=== PATIENT | female | born 1950 | race Asian ===

== ENCOUNTER 2019-12-23 13:33 | Outpatient (CLI) | payer MEDICARE, OTHER | END 2019-12-23 13:34 | disposition home or self-care (01) | LOC: LAB 13:33 | PROVIDERS: ATTEND Ophthalmology | DX: Z01.812 Encounter for preprocedural laboratory examination (principal); Z20.828 Contact with and (suspected) exposure to other viral communicable diseases; H25.812 Combined forms of age-related cataract, left eye ==

== ENCOUNTER 2019-12-26 06:51 | Day surgery (SDC) | payer MEDICARE, OTHER ==
[~2019-12-26 06:51] MED LIST: KETOROLAC 0.45% OPHTH DROPS ONE; PHENYLEPHRINE 2.5% OPHTH 2 ML DROPS ONE; PROPARACAINE 0.5% OPHTH DROPS 15 ML ONE
[2019-12-26] MEDS ORDERED: LACTATED RINGERS 500 ML IV ONE (06:55)
[2019-12-26] MEDS ORDERED: CYCLOPENTOLATE 1% OPHTH DROPS 2 ML LEFTEYE ONE (07:10)
--- NOTE | 2019-12-26 07:30 | ANESTHESIA ---
Pre-Anesthesia VS, & Labs - Diagnosis left eye cataract - Procedure CATIOL Vital Signs: Temp Pulse Resp BP Pulse Ox 36.1 C L 77 17 176/101 H 100 12/26/19 07:08 12/26/19 07:08 12/26/19 07:08 12/26/19 07:08 12/26/19 07:08 Height: 5 ft 3 in Weight (kg): 47 kg Body Mass Index: 18.3 BMI Classification: Underweight - NPO >8 hours - Is Patient ?: No - Lab Results Current Lab Results: Laboratory Tests 12/26/19 07:19: POC Whole Bld Glucose 364 H Lab results reviewed: Yes Home Medications and Allergies Home Medications: Ambulatory Orders No Known Home Medications 12/26/19 No Known Home Medications 12/26/19 Allergies/Adverse Reactions: Allergies Allergy/AdvReac Type Severity Reaction Status Date / Time ibuprofen Allergy Hives Verified 12/26/19 07:26 Penicillins Allergy Hives Verified 01/20/16 06:12 sulfamethoxazole Allergy Hives Verified 01/20/16 06:12 [From ] trimethoprim [From ] Allergy Hives Verified 01/20/16 06:12 iodine AdvReac Unknown Verified 01/20/16 06:12 Anes History & Medical History - Anesthetic History Anesthesia Complications: reports: No previous complications Family history of Anesthesia Complications: Denies Family history of Malignant Hyperthermia: Denies - Medical History Cardiovascular: reports: Hypertension Pulmonary: reports: None Gastrointestinal: reports: None Urinary: reports: None Musculoskeletal: reports: None Endocrine/Autoimmune: reports: Type 2 diabetes Skin: reports: None Smoking Status: Never smoker Psychosocial: reports: Other (patient has stopped taking all medications, blood glucose 367 this morning, Dr. Pan notified) - Surgical History General: Appendectomy Orthopedic: Other Exam General: Alert, Oriented x3, Cooperative, No acute distress Mouth Openin Fingerbreadth Neck Mobility: Normal Mallampati classification: II Respiratory: Lungs clear, Normal breath sounds, No respiratory distress, No accessory muscle use Cardiovascular: Regular rate, Normal S1, Normal S2, No murmurs Plan Anesthesia Type: MAC Consent for Procedure(s) Verified and Reviewed: Yes Code Status: Attempt Resuscitation ASA classification: 3-Severe systemic disease Is this case an emergency?: No
[2019-12-26] MEDS ORDERED: EPINEPHrine 1 MG/ML AMP IR ONE (08:10)
[2019-12-26] MEDS ORDERED: PROPARACAINE 0.5% OPHTH DROPS 15 ML EACHEYE ONE (08:10)
[2019-12-26] MEDS ORDERED: BRIMONIDINE 0.2% OPHTH DROPS 5 ML OPTH ONE (08:10)
[2019-12-26] MEDS ORDERED: CHONDR SULF/HYALURONATE SYRINGE IO ONE (08:10)
[2019-12-26] MEDS ORDERED: BSS/LIDOCAINE/EPINEPHRINE 1 ML SYRINGE IO ONE (08:12)
[2019-12-26] MEDS ORDERED: TRIAMCIN/MOXIFLOX OPHTHALMIC 0.6 ML VIAL IO ONE ×2 (08:12→08:13)
[2019-12-26] MEDS ORDERED: VANCOMYCIN OPHTHALMI 8MG/0.8ML 8 MG/0.8 ML SYRINGE IO ONE ×2 (08:14→12:39)
[2019-12-26] MEDS ORDERED: LACTATED RINGERS 1,000 ML IV ONE (08:29)
--- NOTE | 2019-12-26 08:40 | ANESTHESIA POST OP EVALUATION ---
Anesthesia Post Eval - Post Anesthesia Eval Vitals: Last Vital Signs Temp 36.5 C 12/26/19 08:33 Pulse 70 12/26/19 08:33 Resp 12 12/26/19 08:33 BP 154/66 H 12/26/19 08:33 Pulse Ox 100 12/26/19 08:33 CV Function Including HR & BP: positive: Stable Pain Control: positive: Satisfactory Nausea & Vomiting: positive: Negative Mental Status: positive: Baseline Respiratory Status: Airway Patent Hydration Status: Satisfactory Anesthesia Complications: positive: None
[2019-12-26 08:53] VITALS: BP 150/68
[2019-12-26] MEDS ORDERED: BSS/LIDOCAINE/EPINEPHRINE 1 ML SYRINGE ONE (12:39)
[2019-12-26] MEDS ORDERED: TIMOLOL 0.5% OPHTH DROPS ONE (12:40)
[2019-12-26] MEDS ORDERED: BRIMONIDINE 0.2% OPHTH DROPS 5 ML ONE (12:40)
--- NOTE | 2019-12-26 19:27 | PROCEDURE REPORT ---
DATE OF SERVICE: 12/26/2019 Physician: El Pan MD DATE OF PROCEDURE: 12/26/2019. PREOPERATIVE DIAGNOSIS: Visually significant cataract of left eye; this was her first cataract surgery. POSTOPERATIVE DIAGNOSIS: Visually significant cataract of left eye; this was her first cataract surgery. PROCEDURE PERFORMED: Phacoemulsification with posterior chamber intraocular lens implant, left eye. SURGEON: El Pan MD ANESTHESIA: Monitored anesthesia care. COMPLICATIONS: None. OPERATIVE INDICATIONS: This is a 69-year-old woman with progressive loss of vision in the left eye due to 2-3+ nuclear sclerotic and 3+ posterior subcapsular cataract. Best corrected visual acuity was 20/500, with glare to light perception vision in the left eye. Indications for surgery are overall decrease in vision, difficulty seeing words on a computer screen, difficulty reading, difficulty seeing words, closed captions, or game scores on TV, difficulty seeing street signs, difficulty driving in low light or at night, difficulty driving at night because of headlights from other vehicles, difficulty with glare or bright lights in any situation, and difficulty tracking a golf ball. She was consented at length concerning risks and benefits of cataract surgery, after which she expressed a desire to proceed with surgery. OPERATIVE PROCEDURE: Patient was taken to OR #3 and placed under monitored anesthesia care. A surgical timeout was conducted confirming correct patient, correct procedure, and correct surgical site. She was given topical anesthesia, and prepped and draped in the usual sterile manner. The eye was entered at the 6 and 3 o'clock positions. Intracameral Shugarcaine was injected into the anterior chamber, followed by Viscoat. A continuous-tear curvilinear capsulorrhexis was performed. The nucleus was hydrodissected and phacoemulsified. The cortex was evacuated using automated infusion and aspiration. Provisc was injected in the capsular bag, and a 23.0 diopter intraocular lens was inserted into the bag. Infusion and aspiration was used to evacuate the viscoelastic materials. The eye was inflated to physiologic pressure using balanced salt solution and found to be watertight. Approximately 0.25 mL of a mixture of triamcinolone and moxifloxacin was injected transsclerally into the vitreous in the inferotemporal quadrant. An additional 0.55 mL of a mixture of triamcinolone, moxifloxacin and vancomycin was injected subconjunctivally in the superior quadrant for infection and inflammation prophylaxis. Wound integrity was checked with Weck-Edda sponges. Patient was taken from the Operating Room in good condition and given postoperative instructions. TD: 12/26/2019 08:38 ERIN
== END 2019-12-26 06:52 | disposition home or self-care (01) ==
LOC: SDS 06:51
PROVIDERS: ATTEND Ophthalmology
DX: E11.36 Type 2 diabetes mellitus with diabetic cataract (principal); H25.812 Combined forms of age-related cataract, left eye; I10 Essential (primary) hypertension
CPT/HCPCS: 66984; A9270; J3490; J7120; V2632

== ENCOUNTER 2020-01-20 15:48 | Outpatient (CLI) | payer MEDICARE, OTHER | END 2020-01-20 15:49 | disposition home or self-care (01) | LOC: LAB 15:48 | PROVIDERS: ATTEND Ophthalmology | DX: Z01.812 Encounter for preprocedural laboratory examination (principal); H25.811 Combined forms of age-related cataract, right eye; Z20.828 Contact with and (suspected) exposure to other viral communicable diseases ==

== ENCOUNTER 2020-01-23 06:56 | Day surgery (SDC) | payer MEDICARE, OTHER ==
[2020-01-23] MEDS ORDERED: LACTATED RINGERS 500 ML IV ONE ×2 (07:05→08:23)
--- NOTE | 2020-01-23 07:37 | ANESTHESIA ---
Pre-Anesthesia VS, & Labs - Diagnosis right eye senile combined cataract - Procedure right eye cataract extraction with IOL implant Vital Signs: Temp Pulse Resp BP Pulse Ox 36.0 C L 78 16 155/86 H 100 01/23/20 07:05 01/23/20 07:05 01/23/20 07:05 01/23/20 07:05 01/23/20 07:05 Height: 5 ft 3 in Weight (kg): 46.2 kg Body Mass Index: 18.0 BMI Classification: Underweight - NPO >8 hours - Is Patient ?: No - Lab Results Current Lab Results: Laboratory Tests 01/23/20 07:19: POC Whole Bld Glucose 390 H Home Medications and Allergies No Known Home Medications 12/26/19 Allergies/Adverse Reactions: Allergies Allergy/AdvReac Type Severity Reaction Status Date / Time ibuprofen Allergy Hives Verified 12/26/19 07:26 Penicillins Allergy Hives Verified 01/20/16 06:12 sulfamethoxazole Allergy Hives Verified 01/20/16 06:12 [From Novra] trimethoprim [From ] Allergy Hives Verified 01/20/16 06:12 iodine AdvReac Unknown Verified 01/20/16 06:12 Anes History & Medical History - Anesthetic History Anesthesia Complications: reports: No previous complications - Medical History Cardiovascular: reports: None Pulmonary: reports: None Gastrointestinal: reports: None Urinary: reports: None Neuro: reports: None Musculoskeletal: reports: None Endocrine/Autoimmune: reports: Type 2 diabetes (refuses treatment for DM) Skin: reports: None Smoking Status: Never smoker Psychosocial: reports: No issues indicated History of Cancer?: No - Surgical History General: Appendectomy Eyes Ears Nose Throat (EENT): Cataracts Orthopedic: Other Exam General: Alert, Oriented x3, Cooperative, No acute distress Dental: WNL Mouth Openin Fingerbreadth Neck Mobility: Normal Mallampati classification: I Thyromental Distance: 4-6 cm Mental/Cognitive Status: Alert/Oriented X3, Normal for patient Plan Anesthesia Type: MAC Consent for Procedure(s) Verified and Reviewed: Yes Code Status: Attempt Resuscitation ASA classification: 3-Severe systemic disease Is this case an emergency?: No
[2020-01-23] MEDS ORDERED: fentaNYL 100 MCG/2 ML VIAL IVP ONE (08:00)
[2020-01-23] MEDS ORDERED: MIDAZOLAM 2 MG/2 ML VIAL IVP ONE (08:00)
[2020-01-23 08:44] VITALS: BP 140/84
--- NOTE | 2020-01-23 08:49 | ANESTHESIA POST OP EVALUATION ---
Anesthesia Post Eval - Post Anesthesia Eval Vitals: Last Vital Signs Temp 36.4 C L 01/23/20 08:43 Pulse 75 01/23/20 08:43 Resp 12 01/23/20 08:43 BP 140/84 H 01/23/20 08:43 Pulse Ox 100 01/23/20 08:43 CV Function Including HR & BP: positive: Stable Pain Control: positive: Satisfactory Nausea & Vomiting: positive: Negative Mental Status: positive: Baseline Respiratory Status: Airway Patent Hydration Status: Satisfactory Anesthesia Complications: positive: None
--- NOTE | 2020-01-23 11:45 | OPERATIVE REPORT ---
DATE OF SERVICE: 01/23/2020 Physician: El Pan MD PREOPERATIVE DIAGNOSIS: Visually significant cataract, right eye. Cataract surgery was performed on the left eye on 12/26/2019. POSTOPERATIVE DIAGNOSIS: Visually significant cataract, right eye. Cataract surgery was performed on the left eye on 12/26/2019. PROCEDURE PERFORMED: Phacoemulsification with posterior chamber intraocular lens implant, right eye. SURGEON: El Pan MD ANESTHESIA: Monitored anesthesia care. COMPLICATIONS: None. OPERATIVE INDICATIONS: This is a 69-year-old woman with progressive vision loss in the right eye due to 2-3+ nuclear sclerotic and 3+ posterior subcapsular cataract. Best corrected visual acuity was 20/200, with glare to light perception vision in the right eye. She was consented at length concerning the risks and benefits of cataract surgery, after which she expressed a desire to proceed with surgery. OPERATIVE PROCEDURE: The patient was taken to OR #3 and placed under monitored anesthesia care. A surgical timeout was conducted confirming correct patient, correct procedure, and correct surgical site. She was given topical anesthesia, and prepped and draped in the usual sterile fashion. The eye was entered at the 12 and 9 o'clock positions. Intracameral Shugarcaine was injected into the anterior chamber, followed by Viscoat. A continuous-tear curvilinear capsulorrhexis was performed. The nucleus was hydrodissected and phacoemulsified. The cortex was evacuated using automated infusion and aspiration. Provisc was injected in the capsular bag, and a 24.5 diopter intraocular lens was inserted into the bag. Infusion and aspiration was used to evacuate the viscoelastic materials. The eye was inflated to physiologic pressure using balanced salt solution and found to be watertight. Approximately 0.25 mL of a mixture of triamcinolone and moxifloxacin was injected transsclerally into the vitreous in the inferotemporal quadrant. An additional 0.55 mL of a mixture of triamcinolone, moxifloxacin, and vancomycin was injected subconjunctivally in the superior quadrant for infection and inflammation prophylaxis. Wound integrity was checked with Weck-Edda sponges. Patient was taken from the Operating Room in good condition and given postoperative instructions. TD: 01/23/2020 08:30 [facility]
[2020-01-23] MEDS ORDERED: TRIAMCIN/MOXIFLOX OPHTHALMIC 0.6 ML VIAL IO ONE (13:55)
[2020-01-23] MEDS ORDERED: VANCOMYCIN OPHTHALMI 8MG/0.8ML 8 MG/0.8 ML SYRINGE IO ONE (13:55)
[2020-01-23] MEDS ORDERED: BSS/LIDOCAINE/EPINEPHRINE 1 ML SYRINGE ONE (13:55)
[2020-01-23] MEDS ORDERED: EPINEPHrine 1 MG/ML AMP ONE (13:55)
[2020-01-23] MEDS ORDERED: BRIMONIDINE 0.2% OPHTH DROPS 5 ML ONE (13:55)
[2020-01-23] MEDS ORDERED: TIMOLOL 0.5% OPHTH DROPS ONE (13:55)
== END 2020-01-23 06:57 | disposition home or self-care (01) ==
LOC: SDS 06:56
PROVIDERS: ATTEND Ophthalmology
DX: E11.36 Type 2 diabetes mellitus with diabetic cataract (principal); H25.811 Combined forms of age-related cataract, right eye; Z98.42 Cataract extraction status, left eye; I10 Essential (primary) hypertension
CPT/HCPCS: 66984; A9270; J3490; J7120; V2632

== ENCOUNTER 2020-11-02 09:54 | Outpatient (CLI) | payer MEDICARE, OTHER ==
[2020-11-02] MEDS ORDERED: GADOBUTROL 10 MMOL/10 ML VIAL ONE (10:25)
[2020-11-02 10:31] LABS: CREATININE 0.6 mg/dL (0.4-1.0)
[2020-11-02] MEDS ORDERED: GADOBUTROL 10 MMOL/10 ML VIAL IVP ONE (16:47)
--- NOTE | 2020-11-02 17:19 | MRI Report ---
PROCEDURE: Pelvis W/WO INDICATIONS: UNINTENTIONAL WEIGHT LOSS. CONTRAST: IV CONTRAST: Gadavist ml: 4 TECHNIQUE: Coronal ultra fast SE, sagittal breath-hold T2 FSE; axial T1 FSE with and without fat saturation thro ugh the pelvis. Optional long- and short-axis uterine nonbreath-hold T2 FSE through the uterus. Sag ittal or axial dynamic ultra fast GE during administration of contrast. Post-contrast axial or coron al ultra fast GE / 2-D spoiled GE with fat saturation from the iliac crests to the symphysis. Option al diffusion weighted imaging and ADC may be performed. COMPARISON: None. FINDINGS: Image quality: Excellent. Uterus: Uterus is normal in size inferiorly, and at its superior aspect there is a rounded masslike structure measuring up to 4.8 cm in maximal transverse dimension. This has low signal intensity on T2 -weighted imaging, an intermediate signal intensity on axial T1 imaging. Postcontrast fat suppressed imaging shows contrast enhancement, most prominently along the parameter of this rounded structure. Endometrium is normal in thickness. Junctional zone is normal in thickness at 12 mm or less. Adnexa: Both ovaries are not seen as discrete entities, likely due to postmenopausal ovarian atrophy .. Urinary system: Bladder wall is normal in thickness. Distal ureters are non distended. Urethra dominga ears normal in morphology. Nodes and vessels: No pelvic or inguinal adenopathy by size criteria. Iliac vessels are normal in s ize. Bowel and peritoneum: No pathologic free pelvic fluid. Inferior colon and small bowel loops are nor mal in caliber. Soft tissues: No inguinal hernias. No findings of pelvic floor incompetence in the absence of provo cation. Bones: Marrow demonstrates normal overall signal. IMPRESSION: Infection or malignant neoplasm is not identified within the pelvis. There is, however, a rounded soft tissue mass measuring up to 4.8 cm adjacent to or at the upper margin of the uterus. T he exact relationship of the upper uterine serosal border and the rounded mass, which enhances, is no t established by this study. Pelvic ultrasound is recommended for additional assessment of this struc ture and its relationship to the uterus. The ovaries bilaterally could not be located. Ultrasound ass essment may allow visualization of the ovaries and potential relationship to this structure. Overall the appearance is most consistent with an unusually prominent uterine fibroid projecting dire ctly cephalad from the fundal serosal border but additional assessment with pelvic ultrasound appears warranted to confirm this circumstance in the setting of unexplained weight loss. Reviewed by: Michael Early MD on 11/02/2020 5:18 PM PDT Approved by: Michael Early MD on 11/02/2020 5:18 PM PDT Station ID: [id number]
== END 2020-11-02 09:55 | disposition home or self-care (01) ==
LOC: DI 09:54
PROVIDERS: ATTEND Nurse Practitioner Family
DX: R63.4 Abnormal weight loss (principal); R19.00 Intra-abdominal and pelvic swelling, mass and lump, unspecified site
CPT/HCPCS: 36415; 72197; 82565; A9585

== ENCOUNTER 2021-05-05 13:22 | Outpatient (CLI) | payer MEDICARE, OTHER ==
--- NOTE | 2021-05-05 16:56 | XRAY Report ---
PROCEDURE: Chest 2 View X-Ray INDICATIONS: FATIGUE TECHNIQUE: 2 view(s) of the chest. COMPARISON: None. FINDINGS: Surgical changes and devices: None. Lungs and pleura: No pleural effusions or pneumothorax. Lungs are clear. Mediastinum: Mediastinal contours are normal. Heart size is normal. Bones and chest wall: No suspicious bony abnormalities. Soft tissues appear unremarkable. IMPRESSION: No acute cardiopulmonary disease process. Reviewed by: Desiree Mckeon MD, PhD on 05/05/2021 4:55 PM [facility] Approved by: Desiree Mckeon MD, PhD on 05/05/2021 4:55 PM PST Station ID: [id number]
== END 2021-05-05 13:23 | disposition home or self-care (01) ==
LOC: DI.N 13:22
PROVIDERS: ATTEND Student in an Organized Health Care Education/Training Program
DX: R53.83 Other fatigue (principal)

== ENCOUNTER 2021-06-08 13:22 | Outpatient (CLI) | payer MEDICARE, OTHER ==
--- NOTE | 2021-06-16 09:03 | Mammography Report ---
BILATERAL DIGITAL SCREENING MAMMOGRAM 3D/2D: 06/08/2021 CLINICAL: Routine screening. No prior exams were available for comparison. The tissue of both breasts is heterogeneously dense. T his may lower the sensitivity of mammography. There are benign vascular calcifications in both breasts. No significant masses, calcifications, or other findings are seen in either breast. IMPRESSION: BENIGN There is no mammographic evidence of malignancy. A 1 year screening mammogram is recommended. This exam was interpreted at Station ID: [id number]. NOTE: For mammograms, a report in lay terms will be sent to the patient. Approximately 15% of breast malignancies will not be visualized mammographically. In the management of a palpable breast mass, a negative mammogram must not discourage biopsy of a clinically suspicious lesion. Electronically Signed By: Pedro Andrews M.D. [facility] [place]:06/15/2021 08:51:14 ACR BI-RADS Category 2: Benign Finding(s) 3342F PARENCHYMAL PATTERN: (D) - The breast(s) demonstrate(s) heterogeneously dense fibroglandular benito barrera. BI-RADS CATEGORY: (2) - 2 RECOMMENDATION: (ANNUAL) - Recommend routine annual screening mammography. [id number] 1 year screening LATERALITY: (B)
== END 2021-06-08 13:23 | disposition home or self-care (01) ==
LOC: DI.N 13:22
PROVIDERS: ATTEND Student in an Organized Health Care Education/Training Program
DX: Z12.31 Encounter for screening mammogram for malignant neoplasm of breast (principal)